=== PATIENT | male | born 1995 | race Caucasian/White ===

== ENCOUNTER → 2017-01-24 | Outpatient (CLI) | payer OTHER ==
--- NOTE | 2017-01-24 15:18 | MAMMOGRAPHY REPORT ---
MALE UNILATERAL LEFT DIGITAL DIAGNOSTIC MAMMOGRAM WITH CAD AND TARGETED LEFT ULTRASOUND: 01/24/2017 CLINICAL HISTORY: The patient reports a swollen tender lump underneath the left nipple last Sunday. The lump has significantly decreased in size and he can no longer clearly feel it. The tenderness aiken s also resolved. He denies any skin erythema, nipple discharge, or other complaints. TECHNIQUE: Current study was also evaluated with a Computer Aided Detection (CAD) system. Left CC a nd MLO views were obtained. COMPARISON: No prior exams were available for comparison. BREAST COMPOSITION: The tissue of the left breast is prominently fatty. FINDINGS: A triangle marker was placed at the site of the prior palpable lump in the left subareolar breast. There is minimal ill-defined density within the left subareolar breast, best seen on the ML O view, which could represent minimal gynecomastia. No suspicious masses, calcifications, or areas o f architectural distortion are noted within the left breast. Targeted ultrasound was performed of the area of the previously palpable lump pointed out by the dontae ent in the left subareolar breast. There is a small amount of hypoechoic ill-defined tissue within t he left subareolar breast, which likely represents minimal gynecomastia. Ultrasound was performed of the right subareolar breast for comparison purposes, which also shows a small amount of hypoechoic t issue which may represent minimal gynecomastia although this is more prominent on the left side jerry red to the right. No suspicious masses or other suspicious sonographic abnormalities are evident. IMPRESSION: ACR BI-RADS CATEGORY 2: BENIGN, TARGETED ULTRASOUND ACR BI-RADS CATEGORY 2: BENIGN Probable minimal gynecomastia in the subareolar breast, which corresponds with the area of the tender palpable lump described by the patient. There is no mammographic or targeted sonographic evidence o f malignancy. Recommend clinical follow-up. The patient has been verbally notified of the results. Approximately 10% of breast cancers are not detected with mammography. A negative mammographic report should not delay biopsy if a clinically suggestive mass is present. Serina Summers M.D. /:01/24/2017 15:03:45 [employer]: Lizzie Castro, [facility] [place] letter sent: Normal 1/2 BI-RADS Code: ACR BI-RADS Category 2: Benign Ultrasound BI-RADS: ACR BI-RADS Category 2: Benign
== END | disposition home or self-care (01) ==
LOC: C.MAMM 12:47
PROVIDERS: ATTEND Physician Assistant Medical
DX: N63.0 Unspecified lump in unspecified breast (principal)